=== PATIENT | male | born 1940 | race Native Hawaiian/Other Pacific Islander ===

== ENCOUNTER 2016-08-17 11:49 | Outpatient (CLI) | payer OTHER, BC ==
[2016-08-17 13:23] LABS: PLATELET COUNT 295 K/uL (142-355)
[2016-08-17 13:56] LABS: POTASSIUM 4.4 mmol/L (3.6-5.2); SODIUM 133 mmol/L (136-145)
== END 2016-08-17 19:19 | disposition home or self-care (01) ==
LOC: LAB 11:49
PROVIDERS: Internal Medicine
DX: K56.69 Other intestinal obstruction (principal); E44.0 Moderate protein-calorie malnutrition
CPT/HCPCS: 80053; 83735; 84100; 84478; 85027

== ENCOUNTER 2016-08-18 14:45 | Outpatient (CLI) | payer OTHER, BC | END 2016-08-18 20:52 | disposition home or self-care (01) | LOC: LAB 14:45 | DX: K92.1 Melena (principal) | CPT/HCPCS: 82272; 87045; 87205; 87328; 87329; 87493; 87798; 87899 ==

== ENCOUNTER 2016-08-21 10:23 | Outpatient (CLI) | payer OTHER, BC ==
[2016-08-21 10:39] LABS: PLATELET COUNT 315 K/uL (142-355)
[2016-08-21 10:41] LABS: POTASSIUM 3.9 mmol/L (3.6-5.2); SODIUM 136 mmol/L (136-145)
== END 2016-08-21 22:59 | disposition home or self-care (01) ==
LOC: LAB 10:23
PROVIDERS: Internal Medicine
DX: K56.69 Other intestinal obstruction (principal); E44.0 Moderate protein-calorie malnutrition
CPT/HCPCS: 80053; 83735; 84100; 84478; 85027

== ENCOUNTER 2016-08-23 15:00 | Outpatient (CLI) | payer OTHER, BC ==
[2016-08-23 15:26] LABS: PLATELET COUNT 309 K/uL (142-355)
[2016-08-23 15:37] LABS: POTASSIUM 4.3 mmol/L (3.6-5.2); SODIUM 133 mmol/L (136-145)
== END 2016-08-23 23:49 | disposition home or self-care (01) ==
LOC: LAB 15:00
PROVIDERS: Internal Medicine
DX: K56.69 Other intestinal obstruction (principal); E44.0 Moderate protein-calorie malnutrition
CPT/HCPCS: 80053; 83735; 84100; 84478; 85027

== ENCOUNTER 2016-10-19 16:22 | Outpatient (CLI) | payer OTHER, BC | END 2016-10-19 21:10 | disposition home or self-care (01) | LOC: RAD 16:22 | DX: M79.661 Pain in right lower leg (principal); M79.89 Other specified soft tissue disorders ==